=== PATIENT | female | born 1980 | race Caucasian/White ===

== ENCOUNTER 2020-05-11 12:51 | Emergency (ER) | payer SELFPAY ==
[~2020-05-11] VITALS: Ht 175.3 cm; Wt 81.8 kg
[~2020-05-11 12:51] MED LIST: BIRTH CONTROL PILL PO; LORTAB 5/500 501 TAB PO; MULTIPLE VITAMI1 CAP PO; PRISTIQ 50 MG T50 MG PO; XANAX 0.5MG0.5 MG PO; ZYRTEC 10MG10 MG PO
[2020-05-11 12:53] VITALS: TEMP 97.2
[2020-05-11] MEDS ORDERED: XANAX .25M0.25 MG/TA PO (13:01)
[2020-05-11] MEDS ORDERED: PRISTIQ 50 MG T50 MG PO (13:02)
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
[2020-05-11 13:27] LABS: BASO % 0.2 % (0.0-2.0); EOS # 0.3 (0.0-0.7); EOS % 2.3 % (0-4.0); GRAN # 8.3 (1.4-6.5); GRAN % 69.1 % (42.2-75.2); HEMATOCRIT 43.9 % (37.0-47.0); HEMOGLOBIN 14.8 g/dl (12.5-16.0); LYMPH # 2.6 (1.2-3.4); LYMPH % 21.8 % (20.0-51.0); MEAN CELL VOLUME 100 fl (80.0-100.0); MEAN CORPUSCULAR HEMOGLOBIN 34 pg (27.0-31.0); MEAN CORPUSCULAR HGB CONC 34 g/dl (33.0-37.0); MEAN PLATELET VOLUME 10.4 fl (7.4-10.4); MONO # 0.7 (0.1-0.6); PLATELET COUNT 206 K/mm3 (130-400); RED BLOOD COUNT 4.41 M/mm3 (4.10-5.30); REDCELL DISTRIBUTION WIDTH-CV 11.8 % (11.5-14.5)
[2020-05-11 13:34] LABS: ALBUMIN 4.8 gm/dL (3.5-5.0); BILIRUBIN,TOTAL 0.5 mg/dL (0.0-1.0); CALCIUM 9.6 mg/dL (8.4-10.2); CREATININE, serum 0.73 (0.52-1.25); TOTAL PROTEIN 8.1 gm/dL (6.4-8.2)
[2020-05-11 14:00] LABS: INR 1.1 (0.8-3.0)
[2020-05-11 14:03] LABS: PARTIAL THROMBOPLASTIN TIME 31.5 SECONDS (26.0-37.0)
[2020-05-11 15:19] LABS: COLLECTION METHOD CLEAN CATCH
[2020-05-11 15:34] LABS: PH 7 (5-8); SQUAMOUS EPITHELIAL 0-2 /hpf; URINE APPEARANCE Clear; URINE BACTERIA Rare /hpf; URINE BILIRUBIN Negative (NEGATIVE); URINE BLOOD Negative (NEGATIVE); URINE COLOR Yellow; URINE GLUCOSE Negative (NEGATIVE); URINE KETONE Negative (NEGATIVE); URINE LEUKOCYTE ESTERASE Trace (NEGATIVE); URINE NITRATE Positive (NEGATIVE); URINE PROTEIN(semi-quant) Negative (NEGATIVE); URINE RBC 0-2 /hpf; URINE UROBILINOGEN Negative (NEGATIVE)
[2020-05-11 16:35] VITALS: BP 143/87; PULSE 84
== END 2020-05-11 16:35 | disposition short-term general hospital (02) ==
LOC: COL.ER 12:51
PROVIDERS: Emergency Medicine
DX: S06.5X9A Traumatic subdural hemorrhage with loss of consciousness of unspecified duration, initial encounter (principal); S82.101A Unspecified fracture of upper end of right tibia, initial encounter for closed fracture; S70.01XA Contusion of right hip, initial encounter; R40.2412 Glasgow coma scale score 13-15, at arrival to emergency department; V49.49XA Driver injured in collision with other motor vehicles in traffic accident, initial encounter
CPT/HCPCS: J1170; J1953; J2060; J3010; J7030; Q9967